=== PATIENT | female | born 1945 | race Hispanic/Latino ===

== ENCOUNTER → 2018-09-14 | Outpatient (RCR) | payer MEDICARE ==
[~2018-09-14] MED LIST: CALCIUM ACETAT667 M1 PO; VITAMIN A8000 UNIT PO; VITAMIN E400 UNIT PO
== END ==
LOC: PT 09-01 13:59
PROVIDERS: ATTEND Family Medicine
DX: M25.552 Pain in left hip (principal)

== ENCOUNTER 2018-10-11 14:58 | Outpatient (RCR) | payer MEDICARE | END 2018-10-12 | LOC: PT 14:58 | PROVIDERS: ATTEND Family Medicine | DX: M25.552 Pain in left hip (principal) | CPT/HCPCS: 97139 ==

== ENCOUNTER 2018-11-08 16:00 | Outpatient (RCR) | payer MEDICARE | END 2018-11-12 | LOC: PT 16:00 | PROVIDERS: ATTEND Family Medicine | DX: M25.552 Pain in left hip (principal) ==

== ENCOUNTER 2019-06-01 20:11 | Emergency (ER) | payer MEDICARE ==
[~2019-06-01] VITALS: Ht 162.6 cm; Wt 58.1 kg
--- OUTSIDE RECORDS SUMMARY | 2019-06-01 20:14 | XMS REPORT ---
Author Author [facility] Address Unknown Phone Unavailable Care Team Providers Care Supervisor [employer] Name Role Phone Unavailable Unavailable Problems This patient has no known problems. Allergies, Adverse Reactions, Alerts This patient has no known allergies or adverse reactions. Medications This patient has no known medications. Results Test Description Test Time Test Comments Text Results Atomic Results Result Comments BREAST ULTRASOUND BILATERAL 2019-04-13 08:43:15 - BREAST ULTRASOUND BILATERALULTRASOUND OF BOTH BREASTS: 04/13/2019CLINICAL: 6 month follow up. Comparison is made to exam dated 10/12/2018 ultrasound - [facility] Color flow and real-time ultrasound of both breasts were performed. Jacob scale images of the real-time examination were reviewed. The breast tissue has heterogenous background echotexture. Targeted left breast ultrasound demonstrates a 10 mm simple cyst at 3 o'clock, 6 cm from the nipple, unchanged since comparison ultrasound, benign. The rest of the bilateral survey ultrasound is negative. No axillary lymphadenopathy was seen.IMPRESSION: BENIGN Simple cyst, benign. There is no sonographic evidence of malignancy. Resume annual screening mammography which is due in 6 months.Shelton Galvin M.D. ss/:04/13/2019 08:43:15 Entry: - 04/18/2019 10:46:50Imaging Technologist: Herminia YEE, [facility]-FWletter sent: BIRADS 1-2 Normal Ultrasound BI- RADS: 2 Benign DIAG MAMM LEFT NELIDA CAD DIGITAL 2018-10-12 08:52:53 - DIAG MAMM LEFT NELIDA CAD DIGITALUNILATERAL LEFT DIGITAL DIAGNOSTIC MAMMOGRAM 3D/2D WITH CAD: 10/12/2018CLINICAL: Recall from screening: Left breast mass. Digital breast tomosynthesis was performed in addition to routine CC and MLO views. Current mammographic images were evaluated by either a Anaphore M-Vu or a Rutanet ImageChecker CAD (computer aided detection system). Comparison is made to exams dated 09/28/2018 mammogram, 09/12/2015 mammogram, and [facility] The tissue of the left breast is heterogeneously dense. This may lower the sensitivity of mammography. There is a benign-appearing 1 cm mass with a peripheral benign calcification in the lateral left breast, 7 cm from the nipple. No suspicious architectural distortion, malignant type calcification, or lymph node abnormality detected. INCOMPLETE ASSESSMENT: ADDITIONAL IMAGING EVALUATION RECOMMENDEDLeft breast ultrasound to follow.- BREAST ULTRASOUND LEFTULTRASOUND OF LEFT BREAST AND LEFT AXILLA: Comparison is made to exams dated 09/28/2018 mammogram, 09/12/2015 mammogram, and [facility] Real-time ultrasound of the left breast and axilla was performed. No abnormalities were seen sonographically in the left axilla. There is a complicated cyst with minimal internal echoes and a small bright echo in its wall in the left breast at 3 o'clock, 6 cm from the nipple. The mass, 1.0 x 0.5 x 0.9 cm, is unassociated with abnormal shadowing or increased flow on color Doppler and correlates with the mass on the preceding mammogram. IMPRESSION: PROBABLY BE NIGN - FOLLOW-UP RECOMMENDEDEvidence of a complicated cyst in the left breast. A follow-up ultrasound in 6 months is recommended to demonstrate stability. Henry Mcdermott M.D. rb/:10/12/2018 08:52:53 Is Architect: Gabriela YEE, [facility] Short Term Follow Up Mammogram BI-RADS: 0 Indeterminate Ultrasound BI-RADS: 3 Probably benign BREAST ULTRASOUND LEFT 2018-10-12 08:52:53 - DIAG MAMM LEFT NELIDA CAD DIGITALUNILATERAL LEFT DIGITAL DIAGNOSTIC MAMMOGRAM 3D/2D WITH CAD: 10/12/2018CLINICAL: Recall from screening: Left breast mass. Digital breast tomosynthesis was performed in addition to routine CC and MLO views. Current mammographic images were evaluated by either a Anaphore M-Vu or a Rutanet ImageChecker CAD (computer aided detection system). Comparison is made to exams dated 09/28/2018 mammogram, 09/12/2015 mammogram, and [facility]10/[facility]. The tissue of the left breast is heterogeneously dense. This may lower the sensitivity of mammography. There is a benign-appearing 1 cm mass with a peripheral benign calcification in the lateral left breast, 7 cm from the nipple. No suspicious architectural distortion, malignant type calcification, or lymph node abnormality detected. INCOMPLETE ASSESSMENT: ADDITIONAL IMAGING EVALUATION RECOMMENDEDLeft breast ultrasound to follow.- BREAST ULTRASOUND LEFTULTRASOUND OF LEFT BREAST AND LEFT AXILLA: 10/12/2018Comparison is made to exams dated 09/28/2018 mammogram, 09/12/2015 mammogram, and [facility] Real-time ultrasound of the left breast and axilla was performed. No abnormalities were seen sonographically in the left axilla. There is a complicated cyst with minimal internal echoes and a small bright echo in its wall in the left breast at 3 o'clock, 6 cm from the nipple. The mass, 1.0 x 0.5 x 0.9 cm, is unassociated with abnormal shadowing or increased flow on color Doppler and correlates with the mass on the preceding mammogram. IMPRESSION: PROBABLY BENIGN - FOLLOW-UP RECOMMENDEDEvidence of a complicated cyst in the left breast. A follow-up ultrasound in 6 months is recommended to demonstrate stability. Henry Mcdermott M.D. rb/:10/12/2018 08:52:53 Is Architect: Gabriela YEE, [facility]: Short Term Follow Up Mammogram BI-RADS: 0 Indeterminate Ultrasound BI-RADS: 3 Probably benign SCR MAMM BILATERAL NELIDA CAD DIGITAL 2018-09-28 08:33:29 - SCR MAMM BILATERAL NELIDA CAD DIGITALBILATERAL DIGITAL SCREENING MAMMOGRAM 3D/2D WITH CAD: 09/28/2018CLINICAL: Asymptomatic. Digital breast tomosynthesis was performed in addition to routine CC and MLO views. Current mammographic images were evaluated by either a Anaphore M-Vu or a Rutanet ImageChecker CAD (computer aided detection system). Comparison is made to exams dated 09/12/2015 mammogram, 05/10 mammogram, and 12/30/2011 mammogram - [facility]. The tissue of both breasts is heterogeneously dense. This may lower the sensitivity of mammography. On the left, a partially obscured 1.0 cm mass is noted in the upper outer quadrant, mid depth, approximately 6 cm from the nipple. A single coarse calcification is noted associated with this. There are no skin or nipple changes, architectural distortion, or axillary adenopathy.On the right, no suspicious mass, architectural distortion, malignant type calcification, or lymph node abnormality is detected. IMPRESSION: INCOMPLETE ASSESSMENT: ADDITIONAL IMAGING EVALUATION RECOMMENDEDIndeterminate left breast mass as above. Recommend spot compression views and ultrasound for further evaluation.Marian ortega/:09/28/2018 08:33:29 Entry: lc - 09/29/2018 12:06:53Imaging Technologist: Chrissy YEE, [facility]-FWletter sent: Additional Imaging Mammogram BI-RADS: 0 Indeterminate
[2019-06-01] MEDS ORDERED: ONDANSETRON HCL INJ 2MG/ML 2ML 2 MG/ML VIAL IV STA (20:36)
[2019-06-01] MEDS ORDERED: MECLIZINE HCL 12.5 MG TAB PO ONE (20:45)
[2019-06-01 20:58] LABS: BASOPHILS % 0.2 % (0.0-1.0); HEMATOCRIT 32.7 % (34.2-44.1); HEMOGLOBIN 11.5 g/dL (12.0-16.0); LYMPHOCYTES % 17.7 % (18.0-39.1); MEAN CORPUSCULAR HEMOGLOBIN 32.5 pg (28-32); MEAN CORPUSCULAR HGB CONC 35.2 g/dL (31-35); MEAN CORPUSCULAR VOLUME 92.4 fL (81-99); MONOCYTES # (AUTO) 0.4 (0.2-0.8); MONOCYTES % 6.4 % (4.4-11.3); NEUTROPHILS # (AUTO) 4.4 (2.1-6.9); NEUTROPHILS % 75.2 % (38.7-80.0); PLATELET COUNT 173 x10e3/uL (140-360); RED BLOOD COUNT 3.54 x10e6/uL (3.6-5.1); RED CELL DISTRIBUTION WIDTH 11.9 % (11.7-14.4)
[2019-06-01 21:04] LABS: BILIRUBIN,URINE NEGATIVE (NEGATIVE); CLARITY,URINE CLEAR (CLEAR); COLOR,URINE YELLOW (YELLOW); KETONES,URINE NEGATIVE (NEGATIVE); LEUKOCYTE ESTERASE ,URINE NEGATIVE (NEGATIVE); NITRITE,URINE NEGATIVE (NEGATIVE); PROTEIN,URINE DIPSTICK NEGATIVE (NEGATIVE); URINE UROBILINOGEN 0.2 mg/dL (0.2 - 1)
[2019-06-01 21:09] LABS: ALANINE AMINOTRANSFERASE 18 IU/L (0-55); ALBUMIN/GLOBULIN RATIO 1.4 (0.8-2.0); ALKALINE PHOSPHATASE 62 IU/L (40-150); ANION GAP 13.6 mmol/L (8-16); BLOOD UREA NITROGEN 12 mg/dL (7-26); BUN/CREATININE RATIO 17 (6-25); CALCIUM 9.2 mg/dL (8.4-10.2); CARBON DIOXIDE 22 mmol/L (22-29); CHLORIDE 90 mmol/L (98-107); CREATININE, SERUM 0.72 mg/dL (0.57-1.11); EST GLOMERULAR FILTRATION RATE > 60 ML/MIN (60-); GLUCOSE 136 mg/dL (74-118); POTASSIUM 3.6 mmol/L (3.5-5.1); SODIUM 122 mmol/L (136-145)
[2019-06-01 21:12] LABS: EPITHELIAL CELLS,URINE RARE /LPF
--- NOTE | 2019-06-01 21:36 | Diagnostic Imaging Report ---
EXAMINATION: Head CT HISTORY: Dizziness, headache COMPARISON: None. TECHNIQUE: Multidetector axial images were obtained without contrast from the foramen magnum to the vertex . The images were reconstructed using brain and bone algorithms. Thin section brain images were reformatted into coronal and sagittal planes. Image quality: Motion/streaking artifact limits the evaluation of the skull base and posterior cranial fossa. Dose modulation, iterative reconstruction, and/or weight based adjustment of the mA/kV was utilized to reduce the radiation dose to as low as reasonably achievable. FINDINGS: Parenchyma: 1. Small dystrophic calcification in the right middle frontal gyrus, likely the sequela from remote infection such as neurocysticercosis. Otherwise no areas of abnormal density in the brain parenchyma. 2. No mass or hemorrhage. No CT evidence of acute territorial vascular insult. Extra-axial spaces:No abnormal density. No extra-axial fluid collections Brain volume: Normal for age. Ventricles: No hydrocephalus or displacement. Arteries: No density suggestive of thrombus. Dural sinuses: No abnormal density. Extra-axial spaces: No abnormal density. Foramen magnum: No mass, Chiari malformation, or basilar invagination. Sella: No obvious mass. Paranasal/mastoid sinuses: Imaged portions unremarkable. Skull/Scalp: No lytic or blastic lesions. No fractures. Incidentally noted tiny benign exostosis in the right superior frontal bone. IMPRESSION: No acute intracranial abnormalities. Signed by: Dr. Latia Rolle M.D. on 06/01/2019 9:32 PM
[2019-06-01] MEDS ORDERED: ACETAMINOPHEN 325 MG TAB PO PRN (22:00)
[2019-06-01] MEDS ORDERED: ONDANSETRON HCL INJ 2MG/ML 2ML 2 MG/ML VIAL IV PRN (22:00)
[2019-06-01] MEDS: SODIUM CHLORIDE 0.9% 1000ML 1,000 ML IV SCH (22:10)
[2019-06-01] MEDS ORDERED: LEVOTHYROXINE50 MCG PO (22:12)
[2019-06-02] MEDS: SODIUM CHLORIDE 0.9% 1000ML 1,000 ML IV SCH (05:32)
[2019-06-02 06:08] LABS: BASOPHILS % 0.2 % (0.0-1.0); EOSINOPHILS % 0.6 % (0.0-6.0); HEMATOCRIT 30.6 % (34.2-44.1); HEMOGLOBIN 10.7 g/dL (12.0-16.0); LYMPHOCYTES # (AUTO) 1.6 (1.0-3.2); LYMPHOCYTES % 30.8 % (18.0-39.1); MEAN CORPUSCULAR HEMOGLOBIN 32.6 pg (28-32); MEAN CORPUSCULAR VOLUME 93.3 fL (81-99); MONOCYTES # (AUTO) 0.6 (0.2-0.8); MONOCYTES % 10.9 % (4.4-11.3); NEUTROPHILS % 57.3 % (38.7-80.0); PLATELET COUNT 170 x10e3/uL (140-360); RED BLOOD COUNT 3.28 x10e6/uL (3.6-5.1)
[2019-06-02 06:44] LABS: ALANINE AMINOTRANSFERASE 16 IU/L (0-55); ALBUMIN 3.4 g/dL (3.5-5.0); ALBUMIN/GLOBULIN RATIO 1.3 (0.8-2.0); ALKALINE PHOSPHATASE 56 IU/L (40-150); ANION GAP 11.6 mmol/L (8-16); BLOOD UREA NITROGEN 9 mg/dL (7-26); BUN/CREATININE RATIO 13 (6-25); CALCIUM 8.9 mg/dL (8.4-10.2); CARBON DIOXIDE 24 mmol/L (22-29); CHLORIDE 104 mmol/L (98-107); CREATININE, SERUM 0.71 mg/dL (0.57-1.11); EST GLOMERULAR FILTRATION RATE > 60 ML/MIN (60-); GLUCOSE 88 mg/dL (74-118); POTASSIUM 3.6 mmol/L (3.5-5.1); SODIUM 136 mmol/L (136-145)
[2019-06-02 06:46] LABS: THYROID STIMULATING HORMONE 1.853 uIU/mL (0.350-4.940)
--- NOTE | 2019-06-02 07:02 | NUR ---
BEDSIDE REPORT. DR. MONTANO AT BEDSIDE
--- NOTE | 2019-06-02 07:30 | NUR ---
PATIENT NIMO RODRIGUEZ EATING BREAKFAST
--- NOTE | 2019-06-02 10:59 | History and Physical ---
CHIEF COMPLAINT: The patient is here for headaches. HISTORY OF PRESENT ILLNESS: Ms. Karon Wheeler, who is a 73-year-old female with a history of hepatitis C and history of hypothyroidism, was in her usual state of health until the patient started with headache, which she was described as occipital, frontal, and the patient also had episodes of vomiting and vertigo. The patient came in here and was found to be hyponatremic and the patient was admitted for correction of hyponatremia. PAST MEDICAL HISTORY: History of hypertension, history of hypothyroidism, history of hepatitis C. MEDICATIONS: She takes her levothyroxine 50 mcg on daily basis. PAST SURGICAL HISTORY: History of appendectomy, history of hernia repair, history of hysterectomy, and also history of bladder repair. ALLERGIES: ALLERGIC TO PENICILLIN. SOCIAL HISTORY: No EtOH abuse. No smoking. No history of IV drug abuse either. The patient was recently diagnosed with hepatitis C. REVIEW OF SYSTEMS: Negative for chest pain. No shortness of breath. Positive for headache. No nausea. Positive for nausea and vomiting. No diarrhea. No constipation. No rectal bleeding. No hematochezia. No hematemesis. FAMILY HISTORY: Noncontributory. PHYSICAL EXAMINATION: VITAL SIGNS: Temperature is 98.0, pulse of 55, respirations 13, blood pressure is 101/50, pulse oximetry of 97%. HEENT: Normocephalic, atraumatic. No icterus present. Pupils are reactive to light and accommodation. CVS: S1 and S2 normal. Regular rate and rhythm. ABDOMEN: Nontender, nondistended. EXTREMITIES: No clubbing, no cyanosis, and no edema. NEUROLOGIC: Positive for headache. No nuchal tenderness present. No meningeal signs present. Pupils are reactive. The patient is alert and oriented x3, talkative. No sensory-motor neuron deficits noted. The patient's gait is not examined. LABORATORY VALUES: Initial white count is 5.82, hemoglobin of 11.5, hematocrit of 32.7. Chemistries show sodium 122, potassium 3.6, BUN of 12, creatinine of 0.72, glucose of 136. Urine was essentially within normal limits. ASSESSMENT: Ms. Karon Wheeler is a 73-year-old female, presents with headache, intractable with nausea and vomiting. The patient's CT was essentially no acute intracranial abnormalities. The patient's sodium has been corrected to 132 at this time. The patient can be discharged from the ER. Further recommendation as an outpatient basis. The patient is to continue with a hypertensive medication. For hypothyroidism, medication and also needs a square cutter to continue monitoring her hepatitis C and treating it. Further recommendation per clinical course. The patient will be followed up with her primary care physician as an outpatient basis. MD DESHAUN Donohue/MODL /[id number]
== END 2019-06-02 09:31 | disposition home or self-care (01) ==
LOC: ER 20:11 → UNDOADMIN 21:55 → ERHOLD 21:55 → UNDODISIN 06-02 09:31
DX: E87.1 Hypo-osmolality and hyponatremia (principal); R51 Headache; I10 Essential (primary) hypertension; E03.9 Hypothyroidism, unspecified; Z86.19 Personal history of other infectious and parasitic diseases; Z82.49 Family history of ischemic heart disease and other diseases of the circulatory system; Z88.0 Allergy status to penicillin
CPT/HCPCS: 36415; 70450; 80053; 81001; 84300; 84436; 84443; 84479; 85025; 96374; 99284; J2405; J7030